=== PATIENT | female | born 1995 | race American Indian/Alaskan Native ===

== ENCOUNTER 2018-10-16 00:16 | Emergency (ER) | payer SELFPAY ==
[2018-10-16] MEDS ORDERED: XYLOCAINE 1% MPF 5 mL INFILTRATI ONE (02:37)
[2018-10-16] MEDS ORDERED: ROCEPHIN IM ONE (02:37)
--- NOTE | 2018-10-16 02:43 | Emergency Department Report ---
Chief Complaint: Urogenital-Female Stated Complaint: ABD PAIN Time Seen by Provider: 10/16/18 02:37 - HPI History of Present Illness: This is a 33-year-old female who presents to ED for further treatment stating that she was tested positive for she was at the beginning of the month patient states that time she got the call from the office she was in [place] visiting. Patient says she was unable to Get to [place] treated. Patient the results pulled up on her phone that shows a tested positive for gonorrhea on 10/05/2018. She denies pelvic pain, fever, chills, nausea vomiting. She states that her her last menstrual period was 09/20/2001 - ROS Review of Systems: As noted in history - Exam Vital Signs: Vital Signs 10/16/18 00:27 Temperature 98.6 F Pulse Rate 77 Respiratory 18 Rate Blood Pressure 117/63 O2 Sat by Pulse 99 Oximetry Physical Exam: General alert and oriented 3 Abdominal: Nontender to palpation on all quadrants MSE screening note: Focused history and physical exam performed. Due to findings the following was ordered: ED Medical Decision Making - Medical Decision Making 23-year-old female presents with positive gonorrhea infection Patient received 250 mg of Rocephin, . Discussed with patient treatment Discussed prophylaxis treatment patient is to abstain from sex 7-10 days as treatment. Discussed patient partner knowledge and treatment. Discussed the follow-up with the health department for further STD testing. Patient's alert and oriented times 3. Vital signs are normal patient is in no acute discharge. Patient will be discharged home with instructions. ED Disposition for MSE Clinical Impression: Acute gonorrhea of genitourinary tract Disposition: - TO HOME OR SELFCARE Is pt being admited?: No Does the pt Need Aspirin: No Condition: Stable Instructions: Safe Sex (ED), Gonococcal Urethritis (ED) Additional Instructions: Make sure to follow up with the primary care physician as discussed. Take all your medications as you've been prescribed. If you have any worsening symptoms or develop new symptoms please return to ED immediately. Referrals: [facility] [Outside] - 3-5 Days [facility] [Outside] - 3-5 Days Forms: Accompanied Note, Work/School Release Form(ED) Time of Disposition: 02:44
[2018-10-16] MEDS ORDERED: ZITHROMAX PO ONE (03:12)
[2018-10-16 04:20] VITALS: BP 120/82
== END 2018-10-16 03:35 | disposition home or self-care (01) ==
LOC: ED 00:16
DX: A54.00 Gonococcal infection of lower genitourinary tract, unspecified (principal)
CPT/HCPCS: 96372; 99282; J0696

== ENCOUNTER 2018-12-12 19:32 | Emergency (ER) | payer SELFPAY ==
--- NOTE | 2018-12-12 20:52 | Event Note ---
ED Screening Note Date of service: 12/12/18 Time: 20:49 ED Screening Note: 23 y/o female comes in for N/V/D and having right side cramping since Sunday. LMP 12/11/18. Having foul vaginal discharg. This initial assessment/diagnostic orders/clinical plan/treatment(s) is/are subject to change based on patients health status, clinical progression and re- assessment by fellow clinical providers in the ED. Further treatment and workup at subsequent clinical providers discretion. Patient/guardian urged not to elope from the ED as their condition may be serious if not clinically assessed and managed. Initial orders include:
[2018-12-12 21:26] LABS: Basophils # (Auto) 0.1 K/mm3 (0.0-0.1); Basophils % (Auto) 0.7 % (0.0-1.8); Eosinophils # (Auto) 0.2 K/mm3 (0.0-0.4); Eosinophils % (Auto) 2.8 % (0.0-4.3); Hematocrit 37.5 % (30.3-42.9); Lymphocytes # (Auto) 2.1 K/mm3 (1.2-5.4); Lymphocytes % (Auto) 29.3 % (13.4-35.0); Mean Corpuscular HGB Conc 32 % (30-34); Mean Corpuscular Volume 80 fl (79-97); Monocytes # (Auto) 0.8 K/mm3 (0.0-0.8); Monocytes % (Auto) 10.6 % (0.0-7.3); Platelet Count 265 K/mm3 (140-440); Red Blood Count 4.68 M/mm3 (3.65-5.03); Red Cell Distribution Width 15.2 % (13.2-15.2)
[2018-12-12 21:33] LABS: Alanine Aminotransferase 8 units/L (7-56); Albumin 4.1 g/dL (3.9-5); BUN/Creatinine Ratio 10; Blood Urea Nitrogen 7 mg/dL (7-17); Calcium 9.2 mg/dL (8.4-10.2); Hemolysis Index 6
[2018-12-12 21:59] LABS: Bilirubin,Urine NEG (Negative); Blood,Urine LG (Negative); Color,Urine Yellow (Yellow); Mucus,Urine 1+ /HPF; Protein,Urine <15 mg/dL mg/dL (Negative); Urobilinogen,Urine < 2.0 mg/dL (<2.0)
[2018-12-12 22:00] LABS: RBC,Urine > 182.0 /HPF (0.0-6.0)
[2018-12-12] MEDS ORDERED: AZITHROMYCIN 1 GM ORAL PWDR PACKET PO ONE (22:27)
[2018-12-12] MEDS ORDERED: LIDOCAINE-MPF (1%) 10 MG/1 ML VIAL 5 ML INFILTRATI ONE (22:27)
--- NOTE | 2018-12-12 22:34 | Emergency Department Report ---
HPI - General Chief Complaint: Nausea/Vomiting/Diarrhea Time Seen by Provider: 12/12/18 20:49 - HPI HPI: Room 37 The patient is a 23-year-old female presenting with a chief complaint diarrhea and chills and vaginal discharge. Patient states she's had vaginal discharge for approximately one week described as white in nature. The patient states she was diagnosed with gonorrhea in the completed her antibiotic course. Patient states for the past 4 days she has had diarrhea and chills patient denies vomiting. Patient denies history of fever ED Past Medical Hx - Past Medical History Previous Medical History?: No Hx GERD: Yes - Surgical History Past Surgical History?: No - Family History Family history: no significant - Social History Smoking Status: Never Smoker Substance Use Type: None - Medications Home Medications: Home Medications Medication Instructions Recorded Confirmed Last Taken Type Doxycycline Hyclate [Doxycycline 100 mg PO Q12HR #20 tab 10/16/18 Unknown Rx Hyclate TAB] metroNIDAZOLE [Flagyl] 500 mg PO Q12HR #20 tab 10/16/18 Unknown Rx Diphenoxylate/Atropine [Lomotil] 2 tab PO QID #20 tablet 12/12/18 Unknown Rx Ondansetron [Zofran ODT TAB] 8 mg PO Q8HR #20 tab.rapdis 12/12/18 Unknown Rx traMADol [Ultram] 50 mg PO Q6HR PRN #10 tablet 12/12/18 Unknown Rx ED Review of Systems ROS: Stated complaint: DIARRHEA, CHILLS, EARACHE Other details as noted in HPI Constitutional: denies: fever Eyes: denies: eye pain ENT: ear pain. denies: throat pain Respiratory: no symptoms reported Cardiovascular: denies: chest pain Endocrine: no symptoms reported Gastrointestinal: abdominal pain, nausea, diarrhea. denies: vomiting Genitourinary: discharge. denies: dysuria Musculoskeletal: denies: back pain Neurological: denies: headache Physical Exam - Physical Exam Vital Signs: Vital Signs 12/12/18 19:40 Temperature 97.8 F Pulse Rate 72 Respiratory 18 Rate Blood Pressure 110/75 O2 Sat by Pulse 99 Oximetry Physical Exam: GENERAL: The patient is well-developed well-nourished female lying on stretcher not appearing to be in acute distress. [] HEENT: Normocephalic. Atraumatic. Extraocular motions are intact. Patient has moist mucous membranes. NECK: Supple. Trachea midline CHEST/LUNGS: Clear to auscultation. There is no respiratory distress noted. HEART/CARDIOVASCULAR: Regular. There is no tachycardia. There is no gallop rub or murmur. ABDOMEN: Abdomen is soft, with mild discomfort to palpation in the suprapubic region. There is no tenderness to palpation in the right lower quadrant. There is no Cordero sign. Patient has normal bowel sounds. There is no abdominal distention. SKIN: There is no rash. There is no edema. There is no diaphoresis. NEURO: The patient is awake, alert, and oriented. The patient is cooperative. The patient has normal speech MUSCULOSKELETAL: There is no evidence of acute injury. PELVIC: The patient is currently menstruating. Blood in the vaginal vault. ED Course Vital Signs 12/12/18 19:40 Temperature 97.8 F Pulse Rate 72 Respiratory 18 Rate Blood Pressure 110/75 O2 Sat by Pulse 99 Oximetry ED Medical Decision Making - Lab Data Result diagrams: 12/12/18 20:54 12/12/18 20:54 Laboratory Tests 12/12/18 12/12/18 12/12/18 20:54 20:54 20:55 WBC 7.3 RBC 4.68 Hgb 12.0 Hct 37.5 MCV 80 MCH 26 L MCHC 32 RDW 15.2 Plt Count 265 Lymph % (Auto) 29.3 [place] % (Auto) 10.6 H Eos % (Auto) 2.8 Baso % (Auto) 0.7 Lymph # 2.1 [place] # 0.8 Eos # 0.2 Baso # 0.1 Seg Neutrophils % 56.6 Seg Neutrophils # 4.1 Carbon Dioxide 25 BUN 7 Creatinine 0.7 Estimated GFR > 60 BUN/Creatinine Ratio 10 Glucose 103 H Calcium 9.2 Total Bilirubin 0.80 AST 13 ALT 8 Alkaline Phosphatase 53 Total Protein 7.5 Albumin 4.1 Albumin/Globulin Ratio 1.2 Lipase 19 HCG, Qual Negative Urine Color Urine Turbidity Urine pH Ur Specific [place] Urine Protein Urine Glucose (UA) Urine Ketones Urine Blood Urine Nitrite Urine Bilirubin Urine Urobilinogen Ur Leukocyte Esterase Urine WBC (Auto) Urine RBC (Auto) U Epithel Cells (Auto) Urine Mucus 12/12/18 Unknown WBC RBC Hgb Hct MCV MCH MCHC RDW Plt Count Lymph % (Auto) [place] % (Auto) Eos % (Auto) Baso % (Auto) Lymph # [place] # Eos # Baso # Seg Neutrophils % Seg Neutrophils # Carbon Dioxide BUN Creatinine Estimated GFR BUN/Creatinine Ratio Glucose Calcium Total Bilirubin AST ALT Alkaline Phosphatase Total Protein Albumin Albumin/Globulin Ratio Lipase HCG, Qual Urine Color Yellow Urine Turbidity Slightly-cloudy Urine pH 6.0 Ur Specific [place] 1.020 Urine Protein <15 mg/dl Urine Glucose (UA) Neg Urine Ketones Neg Urine Blood Lg Urine Nitrite Neg Urine Bilirubin Neg Urine Urobilinogen < 2.0 Ur Leukocyte Esterase Neg Urine WBC (Auto) 3.0 Urine RBC (Auto) > 182.0 U Epithel Cells (Auto) 3.0 Urine Mucus 1+ Sodium 139, potassium 4.1, chloride 101.8 Wet prep: Less than 20% clue cells, no Trichomonas, no yeast - Differential Diagnosis gonorrhea, UTI, enteritis Critical care attestation.: If time is entered above; I have spent that time in minutes in the direct care of this critically ill patient, excluding procedure time. ED Disposition Clinical Impression: Diarrhea, Pelvic pain Disposition: TO HOME OR SELFCARE Is pt being admited?: No Does the pt Need Aspirin: No Condition: Stable Instructions: Acute Diarrhea (ED) Prescriptions: Diphenoxylate/Atropine [Lomotil] 2 tab PO QID #20 tablet traMADol [Ultram] 50 mg PO Q6HR PRN #10 tablet PRN Reason: Pain Ondansetron [Zofran ODT TAB] 8 mg PO Q8HR #20 tab.rapdis Referrals: PRIMARY CARE, [Primary Care Provider] - 3-5 Days MANJU RYAN DO [Staff Physician] - 3-5 Days ANA KEENAN MD [Staff Physician] - 3-5 Days Time of Disposition: 00:46
[2018-12-13 01:14] VITALS: BP 128/91
== END 2018-12-13 01:14 | disposition home or self-care (01) ==
LOC: ED 19:32
DX: R19.7 Diarrhea, unspecified (principal); R11.2 Nausea with vomiting, unspecified; R10.2 Pelvic and perineal pain; K21.9 Gastro-esophageal reflux disease without esophagitis; Z79.899 Other long term (current) drug therapy
CPT/HCPCS: 36415; 80053; 81001; 83690; 84703; 85025; 87210; 87591; 96372; 99284; J0696

== ENCOUNTER 2019-06-15 14:05 | Emergency (ER) | payer SELFPAY ==
[2019-06-15 14:17] VITALS: BP 117/66
[2019-06-15 14:47] LABS: Bilirubin,Urine NEG (Negative); Blood,Urine NEG (Negative); Color,Urine Straw (Yellow); Mucus,Urine FEW /HPF; Protein,Urine <15 mg/dL mg/dL (Negative); RBC,Urine < 1.0 /HPF (0.0-6.0); Urobilinogen,Urine < 2.0 mg/dL (<2.0); WBC,Urine < 1.0 /HPF (0.0-6.0)
[2019-06-15 15:17] LABS: Basophils % (Auto) 0.7 % (0.0-1.8); Eosinophils # (Auto) 0.2 K/mm3 (0.0-0.4); Hematocrit 38.2 % (30.3-42.9); Hemoglobin 12.3 gm/dl (10.1-14.3); Lymphocytes % (Auto) 29.5 % (13.4-35.0); Mean Corpuscular HGB Conc 32 % (30-34); Mean Corpuscular Volume 81 fl (79-97); Monocytes # (Auto) 0.6 K/mm3 (0.0-0.8); Platelet Count 243 K/mm3 (140-440); Red Cell Distribution Width 15.3 % (13.2-15.2)
[2019-06-15 15:30] LABS: Alanine Aminotransferase 8 units/L (7-56); Albumin 3.8 g/dL (3.9-5); BUN/Creatinine Ratio 20; Blood Urea Nitrogen 14 mg/dL (7-17); Calcium 9.1 mg/dL (8.4-10.2); Hemolysis Index 27
--- NOTE | 2019-06-15 16:01 | XRay Report ---
CHEST 2 VIEWS, 06/15/2019 3:53 PM INDICATION: Cough. Fever. COMPARISON: None FINDINGS: Support devices: None Heart: The cardiac silhouette is normal in size. Lungs/pleura: The lungs are clear of focal airspace disease or significant pleural effusion. Additional findings: No significant acute abnormality. IMPRESSION: 1. No evidence of acute cardiopulmonary process. Signer Name: Jessica Gray MD Signed: 06/15/2019 3:56 PM Workstation Name: [id number]
--- NOTE | 2019-06-15 16:15 | Emergency Department Report ---
ED General Adult HPI - General Chief complaint: Upper Respiratory Infection Stated complaint: COUGH,FEVER Time Seen by Provider: 06/15/19 14:35 Source: patient Mode of arrival: Ambulatory Limitations: No Limitations - History of Present Illness Initial comments: 24-year-old -[place] female presents to the emergency room complaining of intermittent abdominal pain top and bilateral intermittent cough and intermittent fever. Patient states that she has a history of GERD. Patient states this started on Sunday she was having shortness of breath and reported a fever at home of 103. Patient reports that she had seen by ER provider at [facility] and was diagnosed with bronchitis at the beginning of April. Patient states that she works at [employer]. She is unsure of any sick contact that she works with the public. Patient has taken nothing for her pain or fever. Patient presented to the emergency room with stable vital signs of temp of 98.1 heart rate 84 saturations 100% respiratory rate is 16 and blood pressure 117/66. Onset/Timin -: days(s) Location: abdomen Severity scale (0 -10): 7 Quality: aching Consistency: intermittent Improves with: none Worsens with: none Associated Symptoms: cough, fever/chills (Subjective), headaches, nausea/vomiting (Last week) - Related Data Previous Rx's Medication Instructions Recorded Last Taken Type Doxycycline Hyclate [Doxycycline 100 mg PO Q12HR #20 tab 10/16/18 Unknown Rx Hyclate TAB] metroNIDAZOLE [Flagyl] 500 mg PO Q12HR #20 tab 10/16/18 Unknown Rx Diphenoxylate/Atropine [Lomotil] 2 tab PO QID #20 tablet 12/12/18 Unknown Rx Ondansetron [Zofran ODT TAB] 8 mg PO Q8HR #20 tab.rapdis 12/12/18 Unknown Rx traMADoL [Ultram] 50 mg PO Q6HR PRN #10 tablet 12/12/18 Unknown Rx Allergies Allergy/AdvReac Type Severity Reaction Status Date / Time chocolate flavor Allergy Hives Verified 10/16/18 00:31 ED Review of Systems ROS: Stated complaint: COUGH,FEVER Other details as noted in HPI Comment: All other systems reviewed and negative ED Past Medical Hx - Past Medical History Previous Medical History?: Yes Hx GERD: Yes - Social History Smoking Status: Never Smoker Substance Use Type: None - Medications Home Medications: Home Medications Medication Instructions Recorded Confirmed Last Taken Type Doxycycline Hyclate [Doxycycline 100 mg PO Q12HR #20 tab 10/16/18 Unknown Rx Hyclate TAB] metroNIDAZOLE [Flagyl] 500 mg PO Q12HR #20 tab 10/16/18 Unknown Rx Diphenoxylate/Atropine [Lomotil] 2 tab PO QID #20 tablet 12/12/18 Unknown Rx Ondansetron [Zofran ODT TAB] 8 mg PO Q8HR #20 tab.rapdis 12/12/18 Unknown Rx traMADoL [Ultram] 50 mg PO Q6HR PRN #10 tablet 12/12/18 Unknown Rx ED Physical Exam - General Limitations: No Limitations General appearance: alert, in no apparent distress - Head Head exam: Present: atraumatic, normocephalic - Eye Eye exam: Present: normal appearance - ENT ENT exam: Present: mucous membranes moist - Neck Neck exam: Present: normal inspection - Respiratory Respiratory exam: Present: normal lung sounds bilaterally. Absent: respiratory distress - Cardiovascular Cardiovascular Exam: Present: regular rate, normal rhythm. Absent: systolic murmur, diastolic murmur, rubs, gallop - GI/Abdominal GI/Abdominal exam: Present: soft, normal bowel sounds - Extremities Exam Extremities exam: Present: normal inspection - Back Exam Back exam: Present: normal inspection - Neurological Exam Neurological exam: Present: alert, oriented X3 - Psychiatric Psychiatric exam: Present: normal affect, normal mood - Skin Skin exam: Present: warm, dry, intact, normal color. Absent: rash ED Course Vital Signs 06/15/19 14:16 Temperature 98.1 F Pulse Rate 84 Respiratory 16 Rate Blood Pressure 117/66 [Right] O2 Sat by Pulse 100 Oximetry ED Medical Decision Making - Lab Data Result diagrams: 06/15/19 14:42 06/15/19 14:42 Laboratory Tests 06/15/19 06/15/19 06/15/19 14:42 14:42 14:42 WBC 6.9 RBC 4.70 Hgb 12.3 Hct 38.2 MCV 81 MCH 26 L MCHC 32 RDW 15.3 H Plt Count 243 Lymph % (Auto) 29.5 [place] % (Auto) 9.0 H Eos % (Auto) 3.0 Baso % (Auto) 0.7 Lymph # 2.0 [place] # 0.6 Eos # 0.2 Baso # 0.0 Seg Neutrophils % 57.8 Seg Neutrophils # 4.0 Sodium 138 Potassium 4.3 Chloride 102.4 Carbon Dioxide 23 Anion Gap 17 BUN 14 Creatinine 0.7 Estimated GFR > 60 BUN/Creatinine Ratio 20 Glucose 85 Calcium 9.1 Total Bilirubin 0.50 AST 15 ALT 8 Alkaline Phosphatase 44 Total Protein 6.9 Albumin 3.8 L Albumin/Globulin Ratio 1.2 HCG, Quant < 2 Urine Color Urine Turbidity Urine pH Ur Specific [place] Urine Protein Urine Glucose (UA) Urine Ketones Urine Blood Urine Nitrite Urine Bilirubin Urine Urobilinogen Ur Leukocyte Esterase Urine WBC (Auto) Urine RBC (Auto) U Epithel Cells (Auto) Urine Mucus 06/15/19 Unknown WBC RBC Hgb Hct MCV MCH MCHC RDW Plt Count Lymph % (Auto) [place] % (Auto) Eos % (Auto) Baso % (Auto) Lymph # [place] # Eos # Baso # Seg Neutrophils % Seg Neutrophils # Sodium Potassium Chloride Carbon Dioxide Anion Gap BUN Creatinine Estimated GFR BUN/Creatinine Ratio Glucose Calcium Total Bilirubin AST ALT Alkaline Phosphatase Total Protein Albumin Albumin/Globulin Ratio HCG, Quant Urine Color Straw Urine Turbidity Clear Urine pH 7.0 Ur Specific [place] 1.012 Urine Protein <15 mg/dl Urine Glucose (UA) Neg Urine Ketones Neg Urine Blood Neg Urine Nitrite Neg Urine Bilirubin Neg Urine Urobilinogen < 2.0 Ur Leukocyte Esterase Neg Urine WBC (Auto) < 1.0 Urine RBC (Auto) < 1.0 U Epithel Cells (Auto) 2.0 Urine Mucus Few - Radiology Data Radiology results: report reviewed Referring Physician:JUAN LUIS MOTAPatient Name:JUSTIN BRANDPatient ID:[id number] of :[id number]:FemaleAccession:[id number] Date:1083-04-56Bleror Status:Finalized Findings [facility] [address] [place] [address] XRay Report Signed Patient: JUSTIN BRAND MR#: [id number] : 1995 Acct:[id number] Age/Sex: 24 / F ADM Date: 06/15/19 Loc: ED Attending Dr: Ordering Physician: Juan Luis Clemente MD Date of Service: 06/15/19 Procedure(s): XR chest routine 2V Accession Number(s): [id number] cc: Juan Luis Clemente MD Fluoro Time In Minutes: CHEST 2 VIEWS, 06/15/2019 3:53 PM INDICATION: Cough. Fever. COMPARISON: None FINDINGS: Support devices: None Heart: The cardiac silhouette is normal in size. Lungs/pleura: The lungs are clear of focal airspace disease or significant pleural effusion. Additional findings: No significant acute abnormality. IMPRESSION: 1. No evidence of acute cardiopulmonary process. Signer Name: Jessica Gray MD Signed: 06/15/2019 3:56 PM Workstation Name: [id number] Transcribed By: EB Dictated By: Jessica Gray MD Electronically Authenticated By: Jessica Gray MD Signed Date/Time: 06/15/191555 DD/ 54 TD/TT: - Medical Decision Making 24-year-old -[place] female presents to the emergency room complaining of intermittent abdominal pain top and bilateral intermittent cough and intermittent fever. Patient states that she has a history of GERD. Patient states this started on Sunday she was having shortness of breath and reported a fever at home of 103. Patient reports that she had seen by ER provider at [facility] and was diagnosed with bronchitis at the beginning of April. Patient states that she works at [employer]. She is unsure of any sick contact that she works with the public. Patient has taken nothing for her pain or fever. Patient presented to the emergency room with stable vital signs of temp of 98.1 heart rate 84 saturations 100% respiratory rate is 16 and blood pressure 117/66. Chest x-ray is negative CBC CMP urinalysis and test all within normal limits. Patient will be discharged home instructed to take [id number] ibuprofen or Tylenol. Critical care attestation.: If time is entered above; I have spent that time in minutes in the direct care of this critically ill patient, excluding procedure time. ED Disposition Clinical Impression: Cough Disposition: DC-01 TO HOME OR SELFCARE Is pt being admited?: No Does the pt Need Aspirin: No Condition: Stable Additional Instructions: Chest x-ray is negative CBC CMP urinalysis and test all within normal limits. Recommend to take [id number] ibuprofen or Tylenol. Follow-up with a primary care provider if your symptoms persist or gets worse. Referrals: PRIMARY CARE, [Primary Care Provider] - 3-5 Days [facility] [Provider Group] - 3-5 Days
== END 2019-06-15 16:38 | disposition home or self-care (01) ==
LOC: ED 14:05
DX: R05 Cough (principal); K21.9 Gastro-esophageal reflux disease without esophagitis; Z79.899 Other long term (current) drug therapy; Z88.8 Allergy status to other drugs, medicaments and biological substances
CPT/HCPCS: 36415; 71046; 80053; 81001; 84702; 85025; 99283

== ENCOUNTER 2021-01-12 14:06 | Emergency (ER) | payer SELFPAY | END 2021-01-12 17:43 | LOC: ED 14:06 | DX: R20.0 Anesthesia of skin (principal); R20.2 Paresthesia of skin; Z53.21 Procedure and treatment not carried out due to patient leaving prior to being seen by health care provider ==